=== PATIENT | male | born 1985 | race African-American/Black ===

== ENCOUNTER 2022-08-15 08:31 | Emergency (ER) | payer SELFPAY ==
[~2022-08-15] VITALS: Ht 170.2 cm; Wt 111.1 kg
[2022-08-15] MEDS ORDERED: NAPROXEN250 MG PO (08:41)
== END 2022-08-15 08:41 | disposition home or self-care (01) ==
LOC: ER 08:35
DX: R20.2 Paresthesia of skin (principal); M26.601 Right temporomandibular joint disorder, unspecified; I10 Essential (primary) hypertension; F17.210 Nicotine dependence, cigarettes, uncomplicated
CPT/HCPCS: 99283

== ENCOUNTER 2022-11-02 08:42 | Emergency (ER) | payer OTHER ==
[~2022-11-02] VITALS: Ht 170.2 cm; Wt 111.1 kg
[~2022-11-02 08:42] MED LIST: NAPROXEN250 MG PO
[2022-11-02] MEDS ORDERED: DEXAMETHASONE 4 MG TAB PO STA (09:08)
[2022-11-02] MEDS ORDERED: LIDOCAINE 4% PATCH TP STA (09:08)
[2022-11-02] MEDS ORDERED: KETOROLAC TROMETHAMINE 30 MG/ML VIAL IM STA (09:08)
[2022-11-02] MEDS ORDERED: ACETAMINOPHEN 325 MG TAB PO ONE (09:15)
[2022-11-02 09:25] LABS: BASOPHILS % 0.3 % (0.0-1.0); EOSINOPHILS % 0.4 % (0.0-6.0); LYMPHOCYTES # (AUTO) 0.9 (1.0-3.2); LYMPHOCYTES % 13.5 % (18.0-39.1); MEAN CORPUSCULAR HEMOGLOBIN 30.6 pg (28-32); MEAN CORPUSCULAR HGB CONC 34.1 g/dL (31-35); MEAN CORPUSCULAR VOLUME 89.5 fL (81-99); MONOCYTES # (AUTO) 0.9 (0.2-0.8); MONOCYTES % 12.6 % (4.4-11.3); NEUTROPHILS % 72.9 % (38.7-80.0); PLATELET COUNT 176 x10e3/uL (140-360); RED BLOOD COUNT 4.58 x10e6/uL (4.3-5.7)
[2022-11-02 09:33] LABS: CLARITY,URINE SL CLOUDY (CLEAR); COLOR,URINE YELLOW (YELLOW); LEUKOCYTE ESTERASE ,URINE NEGATIVE (NEGATIVE); NITRITE,URINE NEGATIVE (NEGATIVE); PROTEIN,URINE DIPSTICK 1+ (NEGATIVE)
[2022-11-02 09:37] LABS: KETONES,URINE 1+ (NEGATIVE); URINE UROBILINOGEN 0.2 mg/dL (0.2 - 1)
[2022-11-02 09:42] LABS: BACTERIA,URINE FEW /HPF; EPITHELIAL CELLS,URINE FEW /LPF
[2022-11-02 09:48] LABS: ALBUMIN 4.5 g/dL (3.5-5.0); ALBUMIN/GLOBULIN RATIO 1.1 (0.8-2.0); CALCIUM 9.5 mg/dL (8.4-10.2); CREATININE, SERUM 1.62 mg/dL (0.72-1.25); LIPASE 114 U/L (8-78)
[2022-11-02] MEDS ORDERED: LABETALOL HCL 5 MG/ML 20ML VIAL IV STA (09:53)
[2022-11-02] MEDS ORDERED: METHOCARBAMOL500 MG PO (10:25)
[2022-11-02] MEDS ORDERED: LIDOCAINE1 EACH EXT (10:25)
[2022-11-02] MEDS ORDERED: NAPROXEN250 MG PO (10:25)
[2022-11-02 10:48] VITALS: O2SAT 98
== END 2022-11-02 10:49 | disposition home or self-care (01) ==
LOC: ER 08:53
DX: R07.89 Other chest pain (principal); M54.9 Dorsalgia, unspecified; R51.9 Headache, unspecified; I10 Essential (primary) hypertension; R94.31 Abnormal electrocardiogram [ECG] [EKG]
CPT/HCPCS: 36415; 71045; 80053; 81001; 83690; 84484; 85025; 93005; 99284; J1885; J8540

== ENCOUNTER 2024-02-04 20:47 | Emergency (ER) | payer BC, OTHER ==
[~2024-02-04] VITALS: Ht 170.2 cm; Wt 112.9 kg
[~2024-02-04 20:47] MED LIST changes: +LIDOCAINE1 EACH EXT; +METHOCARBAMOL500 MG PO; +PANTOPRAZOLE SO40 MG PO; +ULTRAM 50MG50 MG PO
[2024-02-04 21:11] VITALS: TEMP 99.1
[2024-02-04 21:37] LABS: BASOPHILS % 0.4 % (0.0-1.0); EOSINOPHILS % 0.8 % (0.0-6.0); HEMOGLOBIN 13.8 g/dL (14.0-18.0); LYMPHOCYTES # (AUTO) 2.1 (1.0-3.2); LYMPHOCYTES % 40.8 % (18.0-39.1); MEAN CORPUSCULAR HEMOGLOBIN 30.6 pg (28-32); MEAN CORPUSCULAR HGB CONC 33.7 g/dL (31-35); MEAN CORPUSCULAR VOLUME 90.9 fL (81-99); MONOCYTES # (AUTO) 0.4 (0.2-0.8); MONOCYTES % 7.3 % (4.4-11.3); NEUTROPHILS # (AUTO) 2.6 (2.1-6.9); NEUTROPHILS % 50.5 % (38.7-80.0); PLATELET COUNT 223 x10e3/uL (140-360); RED BLOOD COUNT 4.51 x10e6/uL (4.3-5.7); RED CELL DISTRIBUTION WIDTH 12.9 % (11.7-14.4); WHITE BLOOD COUNT 5.19 x10e3/uL (4.8-10.8)
[2024-02-04 21:58] LABS: ALBUMIN 4.1 g/dL (3.5-5.0); ALBUMIN/GLOBULIN RATIO 1.2 (0.8-2.0); ANION GAP 12.3 mmol/L (8-16); BILIRUBIN,TOTAL 0.4 mg/dL (0.2-1.2); CALCIUM 9.4 mg/dL (8.4-10.2); CREATININE, SERUM 1.68 mg/dL (0.72-1.25); TOTAL PROTEIN 7.6 g/dL (6.5-8.1)
[2024-02-04 22:02] LABS: POTASSIUM 3.3 mmol/L (3.5-5.1)
[2024-02-04 22:55] VITALS: PULSE 70; RESP 17
[2024-02-04 23:25] VITALS: BP 155/112; PULSE 78; RESP 17; TEMP 98.9; O2SAT 99
== END 2024-02-04 23:30 | disposition home or self-care (01) ==
LOC: ER 20:56
DX: R07.89 Other chest pain (principal); I10 Essential (primary) hypertension; R51.9 Headache, unspecified; R94.31 Abnormal electrocardiogram [ECG] [EKG]
CPT/HCPCS: 36415; 71045; 80053; 84484; 85025; 93005; 99284

== ENCOUNTER 2025-02-12 22:45 | Inpatient (IN) | payer SELFPAY ==
[~2025-02-12] VITALS: Ht 170.2 cm; Wt 112.9 kg
[2025-02-12 23:00] VITALS: TEMP 99.1
[2025-02-12] MEDS ORDERED: SODIUM CHLORIDE FLUSH 10 ML SYR IV PRN (23:15)
[2025-02-12] MEDS: LISINOPRIL 10 MG TAB PO ONE (23:27)
[2025-02-12] MEDS: LABETALOL HCL 5 MG/ML 20ML VIAL IV STA (23:38)
[2025-02-12 23:55] LABS: BASOPHILS % 0.2 % (0.0-1.0); EOSINOPHILS % 0.3 % (0.0-6.0); LYMPHOCYTES % 8.6 % (18.0-39.1); MONOCYTES % 5.1 % (4.4-11.3); NEUTROPHILS % 85.5 % (38.7-80.0); RED CELL DISTRIBUTION WIDTH 13.2 % (11.7-14.4)
[2025-02-13] VITALS (10 sets, daily range): BP systolic 168–184; BP diastolic 104–129; PULSE 81–94; RESP 20–22; TEMP 97.7–98.6; O2SAT 98–100
[2025-02-13 00:12] LABS: EST GLOMERULAR FILTRATION RATE 42 ML/MIN (>=60)
[2025-02-13 01:44] LABS: AMPHETAMINES SCREEN,URINE NEGATIVE (NEGATIVE); CANNABINOIDS SCREEN,URINE NEGATIVE (NEGATIVE); COCAINE SCREEN,URINE NEGATIVE (NEGATIVE); METHADONE SCREEN, URINE NEGATIVE (NEGATIVE); OPIATES SCREEN,URINE NEGATIVE (NEGATIVE)
[2025-02-13] MEDS ORDERED: ONDANSETRON HCL INJ 2MG/ML 2ML 2 MG/ML VIAL IV PRN (02:00)
[2025-02-13] MEDS ORDERED: SODIUM CHLORIDE FLUSH 10 ML SYR INJ PRN (02:00)
[2025-02-13] MEDS ORDERED: HYDRALAZINE HCL 20 MG/ML VIAL ONE (02:04)
[2025-02-13] MEDS: HYDRALAZINE HCL 20 MG/ML VIAL IV STA (02:06)
[2025-02-13] MEDS ORDERED: LEVETIRACETAM 500 MG/5 ML VIAL IV ONE (03:43)
[2025-02-13] MEDS ORDERED: SODIUM CHLORIDE 0.9% 100 ML ONE (03:44)
[2025-02-13] MEDS: NIFEDIPINE CR 30 MG TAB PO SCH (04:11)
[2025-02-13] MEDS: LEVETIRACETAM 1000MG/100ML IV 100 ML IV ONE (04:11)
[2025-02-13] MEDS ORDERED: ACETAMINOPHEN 325 MG TAB PO PRN ×2 (06:45→13:00)
[2025-02-13] MEDS: HYDROCODONE/APAP 5MG-325MG TAB PO PRN (08:03)
[2025-02-13] MEDS ORDERED: LISNOPRIL (08:07)
[2025-02-13] MEDS ORDERED: MELATONIN 5 MG TABLET PO PRN (13:00)
[2025-02-13] MEDS ORDERED: DIPHENHYDRAMINE HCL 25 MG CAP PO PRN (13:00)
[2025-02-13] MEDS ORDERED: ALBUTEROL/IPRATROPIUM 3 ML NEB NEB PRN (13:00)
[2025-02-13] MEDS ORDERED: HYDRALAZINE HCL 20 MG/ML VIAL IV PRN (13:00)
[2025-02-13] MEDS ORDERED: DOCUSATE SODIUM 100 MG CAP PO PRN (13:00)
[2025-02-13] MEDS ORDERED: DEXTROSE 50% SYRINGE 50 ML IV PRN (13:00)
[2025-02-13] MEDS ORDERED: SIMETHICONE 80 MG CHEW PO PRN (13:00)
[2025-02-13] MEDS ORDERED: BENZONATATE 100 MG CAP PO PRN (13:00)
[2025-02-13] MEDS ORDERED: LIDOCAINE 4% PATCH TP PRN (13:00)
[2025-02-13] MEDS: SODIUM CHLORIDE 0.9% 1000ML 1,000 ML IV SCH (13:11)
[2025-02-13] MEDS: NIFEDIPINE CR 30 MG TAB PO ONE (13:11)
[2025-02-13] MEDS: ENOXAPARIN SOD INJ 40 MG/0.4 ML SYR SC SCH (16:10)
[2025-02-13] MEDS: LEVETIRACETAM 500 MG TAB PO SCH (18:05)
[2025-02-14] VITALS (7 sets, daily range): BP systolic 145–166; BP diastolic 86–108; PULSE 80–92; RESP 13–18; TEMP 98.1–98.9; O2SAT 97–100
[2025-02-14 06:35] LABS: BASOPHILS % 0.4 % (0.0-1.0); EOSINOPHILS % 2.4 % (0.0-6.0); LYMPHOCYTES % 44.6 % (18.0-39.1); MONOCYTES % 9.3 % (4.4-11.3); NEUTROPHILS % 43.1 % (38.7-80.0); RED CELL DISTRIBUTION WIDTH 13.4 % (11.7-14.4)
[2025-02-14 06:59] LABS: EST GLOMERULAR FILTRATION RATE 38.0 ML/MIN (>=60)
[2025-02-14 07:13] LABS: CHOL/HDL RATIO 4.4 (3.9-4.7); LDL CHOLESTEROL 91.0 MG/DL (60-130); PHOSPHORUS 4.1 MG/DL (2.3-4.7)
[2025-02-14] MEDS: PANTOPRAZOLE SOD 40 MG TABEC PO SCH (09:00)
[2025-02-14] MEDS: NIFEDIPINE CR 30 MG TAB PO SCH (09:00)
[2025-02-14] MEDS: CARVEDILOL 12.5 MG TAB PO SCH (14:24)
[2025-02-15 05:05] VITALS: BP 138/100; PULSE 81; RESP 20; TEMP 98.4; O2SAT 100
[2025-02-15 06:10] VITALS: PULSE 75; RESP 20; O2SAT 99
[2025-02-15 07:59] VITALS: BP 136/100; PULSE 73; RESP 18
[2025-02-15 08:30] VITALS: BP 136/100; PULSE 73; TEMP 98.3; O2SAT 100
[2025-02-15 09:57] VITALS: BP 136/100; PULSE 73; RESP 18; O2SAT 98
[2025-02-15 12:00] VITALS: BP_SYST 136; BP_SYST 151; BP_DIAS 100; BP_DIAS 111; PULSE 57; PULSE 73; RESP 20; TEMP 98.2; TEMP 98.3; O2SAT 100; O2SAT 99
[2025-02-15] MEDS ORDERED: KEPPRA500 MG PO (13:00)
[2025-02-15] MEDS ORDERED: COREG6.25 MG PO (13:00)
[2025-02-15] MEDS: POTASSIUM CHLORIDE 20 MEQ TAB CR PO PRN (13:44)
== END 2025-02-15 14:15 | disposition home or self-care (01) | DRG 101 ==
LOC: ER 23:10 → ERHOLD 02-13 02:07 → MED/SURG3 02-13 04:52
PROVIDERS: ADMIT Internal Medicine; ATTEND Internal Medicine
DX: G40.409 Other generalized epilepsy and epileptic syndromes, not intractable, without status epilepticus (principal); I12.9 Hypertensive chronic kidney disease with stage 1 through stage 4 chronic kidney disease, or unspecified chronic kidney disease; N18.4 Chronic kidney disease, stage 4 (severe); I16.0 Hypertensive urgency; T46.5X6A Underdosing of other antihypertensive drugs, initial encounter; Z91.128 Patient's intentional underdosing of medication regimen for other reason; F17.290 Nicotine dependence, other tobacco product, uncomplicated
CPT/HCPCS: 36415; 70450; 71045; 80053; 80061; 80307; 83036; 83735; 84100; 84443; 84484; 85025; 93005; 94760; 94799; 99284; J0360; J1650; J2470; J7030; J7050

== ENCOUNTER 2025-04-06 20:00 | Emergency (ER) | payer SELFPAY ==
[~2025-04-06] VITALS: Ht 170.2 cm; Wt 112.9 kg
[~2025-04-06 20:00] MED LIST changes: +COREG6.25 MG PO; +KEPPRA500 MG PO; +LISNOPRIL
[2025-04-06 21:00] LABS: BASOPHILS % 0.1 % (0.0-1.0); EOSINOPHILS % 0.6 % (0.0-6.0); LYMPHOCYTES % 23.3 % (18.0-39.1); MONOCYTES % 5.3 % (4.4-11.3); NEUTROPHILS % 70.4 % (38.7-80.0); RED CELL DISTRIBUTION WIDTH 12.8 % (11.7-14.4)
[2025-04-06] MEDS ORDERED: SODIUM CHLORIDE 0.9% 100 ML ONE (21:08)
[2025-04-06] MEDS ORDERED: LEVETIRACETAM 500 MG/5 ML VIAL IV ONE (21:08)
[2025-04-06] MEDS: LEVETIRACETAM 1000MG/100ML IV 100 ML IV ONE (21:26)
[2025-04-06 21:33] LABS: EST GLOMERULAR FILTRATION RATE 53.0 ML/MIN (>=60)
[2025-04-06] MEDS ORDERED: KEPPRA500 MG PO (21:51)
[2025-04-06 22:12] VITALS: PULSE 71; RESP 18; TEMP 98.3; O2SAT 98
== END 2025-04-06 22:15 | disposition home or self-care (01) ==
LOC: ER 20:26
DX: G40.909 Epilepsy, unspecified, not intractable, without status epilepticus (principal); I10 Essential (primary) hypertension
CPT/HCPCS: 36415; 80053; 85025; 99284; J1953; J7050